=== PATIENT | female | born 1940 | race Caucasian/White ===

== ENCOUNTER 2023-06-24 | Emergency (ER) | payer OTHER ==
[~2023-06-24] VITALS: Ht 162.6 cm; Wt 77.1 kg
[2023-06-24] MEDS ORDERED: NACL 0.9% 1,000 ML IV ONE (00:15)
[2023-06-24 00:36] VITALS: BP_SYST 162; PULSE 62; RESP 18; TEMP 98.3; O2SAT 96
[2023-06-24 01:04] LABS: BASOPHILS # (AUTO) 0.1 K/uL (0.0-0.2); BASOPHILS % (AUTO) 0.6 % (0.0-2.0); EOSINOPHILS # (AUTO) 0.1 K/uL (0.0-0.4); EOSINOPHILS % (AUTO) 0.8 % (0.0-4.0); HEMATOCRIT 40.9 % (36-48); HEMOGLOBIN 12.7 g/dL (12.0-16.0); LYMPHOCYTES # (AUTO) 1.8 K/uL (1.0-5.5); LYMPHOCYTES % (AUTO) 16.3 % (20.5-51.5); MEAN CORPUSCULAR HEMOGLOBIN 24 pg (27-31); MEAN CORPUSCULAR HGB CONC 31 % (32-36); MEAN CORPUSCULAR VOLUME 78 fL (79.0-98.0); MONOCYTES # (AUTO) 0.4 K/uL (0.0-1.0); MONOCYTES % (AUTO) 3.4 % (1.7-9.3); NEUTROPHILS # (AUTO) 8.6 K/uL (1.8-7.7); NEUTROPHILS % (AUTO) 78.9 % (40.0-70.0); PLATELET COUNT (AUTO) 272 K/uL (130-430); RED BLOOD CELL COUNT(AUTO) 5.25 MIL/uL (4.2-6.2); WHITE BLOOD COUNT (AUTO) 10.9 K/uL (4.8-10.8)
[2023-06-24 01:09] LABS: ALANINE AMINOTRANSFERASE 28 U/L (12-78); ANION GAP 8 (5-15); ASPARTATE AMINOTRANSFERASE 22 U/L (10-37); CALCIUM 9.2 mg/dL (8.4-11.0); CARBON DIOXIDE 29 mmol/L (23-29); CHLORIDE 99 mmol/L (98-107); GLUCOSE 208 mg/dL (74-106); LIPASE 54 U/L (16-77); POTASSIUM 3.1 mmol/L (3.5-5.1); SODIUM SERUM 136 mmol/L (136-145); TOTAL BILIRUBIN 0.3 mg/dL (0.0-1.0); TOTAL PROTEIN, SERUM 7.5 g/dL (6.4-8.3); UREA NITROGEN, BLOOD 22 mg/dL (8-21)
[2023-06-24] MEDS ORDERED: MORPHINE 2 MG/ML INJ. SYRINGE IVP ONE (03:00)
[2023-06-24] MEDS ORDERED: ONDANSETRON HCL 4 MG/2 ML VIAL IVP ONE (04:30)
[2023-06-24] MEDS ORDERED: PANTOPRAZOLE SODIUM 40 MG/VIAL (PROTONIX) IVP ONE (05:15)
[2023-06-24] MEDS ORDERED: OMEP40CA20 PO (05:20)
[2023-06-24] MEDS ORDERED: ONDA-8 TL (05:20)
[2023-06-24 06:16] VITALS: BP_SYST 165; PULSE 62; RESP 18; TEMP 98.3; O2SAT 93
== END 2023-06-24 06:05 | disposition home or self-care (01) ==
LOC: SED
DX: K29.00 Acute gastritis without bleeding (principal); E11.9 Type 2 diabetes mellitus without complications
CPT/HCPCS: 99285; 74176; 96374; 96375; 96361; 80053; 82962; 83690; 85025; 36415; 76376; J2405; C9113; J2270; J7030